=== PATIENT | male | born 2005 | race Caucasian/White ===

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

== ENCOUNTER 2024-02-13 17:44 | Emergency (ER) | payer SELFPAY ==
[2024-02-13 18:11] VITALS: BP 130/81; PULSE 66; RESP 17; TEMP 98.4; BMI 20.7
[2024-02-13 19:15] LABS: THROAT:GRP A STREP DETECTED (NOTDETECTED)
[2024-02-13] MEDS ORDERED: AMOXICILLIN 250 MG CAPSULE ONE (19:36)
[2024-02-13] MEDS ORDERED: ACETAMINOPHEN 500 MG TABLET (FP) ONE (19:36)
[2024-02-13] MEDS: ACETAMINOPHEN 500 MG TABLET (FP) PO ONE (19:47)
[2024-02-13] MEDS: AMOXICILLIN 500 MG CAPSULE (FP) PO ONE ×2 (19:48)
== END 2024-02-13 19:48 | disposition home or self-care (01) ==
LOC: JERFT 17:44
DX: J02.0 Streptococcal pharyngitis (principal); Z20.822 Contact with and (suspected) exposure to COVID-19
CPT/HCPCS: 0241U-QW; 36415; 87651; 99283-25

== ENCOUNTER 2024-04-02 04:25 | Emergency (ER) | payer SELFPAY ==
[2024-04-02 04:30] VITALS: BP 137/71; PULSE 70; RESP 18; TEMP 98.4; BMI 19.2
[2024-04-02] MEDS ORDERED: guaiFENesin/D-METHORPHAN HB 10 ML UNIT-DOSE CUPS ONE (05:36)
[2024-04-02] MEDS: guaiFENesin 200 MG/10 ML 10 ML UNIT-DOSE CUPS PO ONE (05:38)
== END 2024-04-02 06:10 | disposition home or self-care (01) ==
LOC: JER 04:25
DX: R05.9 Cough, unspecified (principal); J06.9 Acute upper respiratory infection, unspecified
CPT/HCPCS: 0241U-QW; 99283-25